=== PATIENT | male | born 1950 | race Caucasian/White ===

== ENCOUNTER 2020-09-06 11:48 | Emergency (ER) | payer OTHER, SELFPAY ==
[2020-09-06 11:53] VITALS: BP 136/71; PULSE 70; RESP 18; TEMP 36.6; O2SAT 97; BMI 30.4
--- NOTE | 2020-09-06 12:31 | ED_ITS ---
HPI - Eye Problem General Chief complaint: Eye Problems Stated complaint: TOXIC GLUE IN EYE AT WORK Time Seen by Provider: 09/06/20 12:26 History of Present Illness HPI Narrative: Patient was at work working with a hose that was spraying paint and glue and got some of the substance on his left eyelid on his face on his chest and some in the left eye, he did wash out the left eye and it feels a little blurry now but he can see normally, the eyes not glued close and there is no significant pain in the eye, there is no significant pain from any of the other injuries Related Data Allergies Allergy/AdvReac Type Severity Reaction Status Date / Time No Known Allergies Allergy Verified 09/06/20 11:51 Review of Systems Review of Systems: Positive for left eye irritation Negatives are no dizziness no weakness no fainting no fainting no headache no vision loss no photophobia no pain in the eye no discharge no browning or rashes Yes all other systems are reviewed and are negative PMFSH Past Medical History Source: nursing notes reviewed Social History Social History Advance Directives: No Advance Directives Information Provided: Yes Physical Exam Vital Signs: Vital Signs: Last Vital Signs Temp 97.8 F 09/06/20 11:53 Pulse 70 09/06/20 11:53 Resp 18 09/06/20 11:53 BP 136/71 09/06/20 11:53 Pulse Ox 97 09/06/20 11:53 Body Mass Index 30.4 General appearance is no distress comfortable The visual acuity is 20/40 bilaterally The left eye a exam is patient holds his eye open it is not glued shut, the upper lid is flipped back there is no foreign body lower lid no conjunctiva foreign body, the eye is stained there is no dye uptake, no foreign body visua lized on the cornea Pupils equal round react light extraocular motions are intact Skin exam , left upper lid had a small tender area of redness on the upper lid medial aspect, skin was intact there are no other browning or rashes on the face Neck is supple No respiratory distress Chest is clear to auscultation bilateral Extremities full range of motion x4 Course Course Course Narrative: On further evaluation patient's main complaint seems to be discomfort on the outer surface of his left upper lid where there was a small red fredi consistent with possibly a minor chemical burn I add 20/40 vision, fluorescein staining did not reveal any corneal abrasion or any sign of any injury, he had no photophobia, he had no tearing or discharge, the eye was irrigated for 20 minutes and pH was normal and patient was discharged to follow-up with eye doctor as needed Diagnosis was small 1st degree burn to the after surface of the upper lid Discharge Plan Discharge Clinical Impression: Chemical exposure of eye Patient Disposition: Home, Self-Care Additional Instructions: There was no sign of any serious injury to the eye itself There was a small burn to the skin of the outer surface of the upper eyelid which should get better on its own Follow with work connection for work related injury on Tuesday if not fully better Return to the ER any time any worse condition or any concerns Interventions: ED Discharge Assessment Last Done: 09/06/20 14:03 Discharge Date/Time: 09/06/20 14:10
[2020-09-06] MEDS: Fluorescein Sodium STRIP 1 STRIP EYE-LEFT (12:36)
[2020-09-06] MEDS: Tetracaine HCl/PF 0.5% Oph Sol 4 ML DROPS 3 DROP EYE-LEFT (12:36)
== END 2020-09-06 14:10 | disposition home or self-care (01) ==
LOC: HO.ED 14:18
PROVIDERS: Emergency Provider Emergency Medicine
DX: T52.8X1A Toxic effect of other organic solvents, accidental (unintentional), initial encounter (principal); T26.02XA Burn of left eyelid and periocular area, initial encounter; Y92.9 Unspecified place or not applicable
CPT/HCPCS: 99283

== ENCOUNTER 2020-12-02 12:39 | Emergency (ER) | payer OTHER, SELFPAY ==
[2020-12-02 14:14] VITALS: BP 179/87; PULSE 67; RESP 18; TEMP 36.5; O2SAT 98; BMI 29.3
[2020-12-02 15:58] VITALS: BP 143/71; PULSE 65; RESP 18; TEMP 37; O2SAT 98
[2020-12-02] MEDS: Fluorescein Sodium STRIP 1 STRIP EYE-LEFT (16:16)
[2020-12-02] MEDS: Tetracaine HCl/PF 0.5% Oph Sol 4 ML DROPS 3 DROP EYE-LEFT (16:16)
--- NOTE | 2020-12-02 18:16 | ED.EYEPROB ---
HPI - Eye Problem General Chief complaint: Eye Problems Stated complaint: eye pain Time Seen by Provider: 12/02/20 15:52 Source: patient Mode of arrival: ambulatory History of Present Illness HPI Narrative: 70-year-old male with a past medical history of asthma, diabetes, HTN, hard of hearing, presenting to the ED complaining of left eye pain, irritation, and blurry/double vision s/p getting [employer] adhesive glue in his eye on Tuesday while at work. Admits to similar symptoms happening in the past. Reports irrigated eye on Tuesday without relief. Reports pain/burning and tearing. Denies visual loss, eye trauma Patient admits to wearing glasses MD chief complaint: eye pain, eye redness and vision change Related Data Previous Rx's Medication Instructions Recorded acetaminophen 500 mg tablet 500 mg PO Q6H PRN #20 tab 12/02/20 (Tylenol Extra Strength) artifi.tears(hypromellose)(PF) 0.3 2 drp OPHTHALMIC-LEFT Q4-6H PRN 12/02/20 % eye drops #10 ml erythromycin 5 mg/gram (0.5 %) eye 1 appl OPHTHALMIC (EYE) Q6H #3.5 g 12/02/20 ointment naproxen 500 mg tablet 500 mg PO BID PRN 10 Days #20 tab 12/02/20 Allergies Allergy/AdvReac Type Severity Reaction Status Date / Time No Known Allergies Allergy Verified 09/06/20 11:51 Review of Systems Review of Systems: Constitutional: No Fever, No Chills, No Fatigue, No Malaise ENT/Mouth: No Ear Pain, No Nasal Congestion, No Sinus Pain, No Hoarseness, No sore throat, No Rhinorrhea, No Swallowing Difficulty Eyes: + Eye Pain, + Swelling, + Redness, No Foreign Body, + Discharge, + Vision Changes Cardiovascular: No Chest Pain, No SOB, No Palpitations Respiratory: No Cough, No Dyspnea Gastrointestinal: No Nausea, No Vomiting, No Abdominal pain Musculoskeletal: No joint pain, No Myalgias, No Joint Swelling Skin: No Skin Lesions, No rash Neuro: No Weakness, No Numbness, No Paresthesias, No Loss of Consciousness, No Headache Yes all other systems are reviewed and are negative [facility] Past Medical History Attestation statement: The following information was validated with the patient. Medical History (Updated 12/02/20 @ 18:17 by NICHOLE Mosher) Asthma Diabetes Hard of hearing Hypertension Social History Social History Advance Directives: No Advance Directives Information Provided: No Physical Exam Vital Signs: Vital Signs: Last Vital Signs Temp 98.6 F 12/02/20 15:58 Pulse 65 12/02/20 15:58 Resp 18 12/02/20 15:58 BP 143/71 H 12/02/20 15:58 Pulse Ox 98 12/02/20 15:58 Body Mass Index 29.3 Const: General: cooperative, healthy appearing and no acute distress Orientation/consciousness: patient oriented x3 Limitations: no limitations HENMT: Head: Yes normal to inspection Ears: hearing grossly normal bilaterally General nose exam: Normal external nose present Face and sinus: Yes normal facial exam Eyes: Other: VA: 20/50 bilaterally without corrective lenses Left eye with some residual glue stuck in lateral eyelashes. Eye fully opens, is not glued shut, EOMs intact without pain. Left eye was fluorescein stained without uptake, no appreciable foreign body. + conjunctival injection and chemosis General: appearance normal, both eyes and all related structures Pupils: Equal, round and reactive pupils present EOM: EOMs intact bilaterally Direct Ophthalmoscopy: normal light reflex Neck: Neck: Yes normal visual inspection, Yes no lymphadenopathy and Yes no meningeal signs Resp: Effort & Inspection: normal respiratory effort and no respiratory distress Cardio: Rate: regular rate Skin: Rashes: no rashes Wounds: no wounds Neuro: General: patient oriented x3 and no meningeal signs Cranial nerves: Yes Equal, round and reactive pupils present Gait exam (Neuro): Normal gait present Extrem: General: Yes normal to inspection Course Course Course Narrative: -initial pH 8.0 in the left eye, 7.0 in the right eye -patient tolerated 1L IVF Sinan lens > pH after irrigation improved to 7.5. Discussed with patient would like to irrigate 1 more L IVF however patient refused, discussed importance however patient continued to refuse as he needs to catch bus back to [place] -spoke to ophthalmology Dr. Agosto, recommended additional irrigation, erythromycin ointment, artificial tears, and ophthalmology follow-up MDM - Eye Problem MDM Narrative Medical decision making narrative: 70-year-old male with a past medical history of asthma, diabetes, HTN, hard of hearing, presenting to the ED complaining of left eye pain, irritation, and blurry/double vision s/p getting [employer] adhesive glue in his eye on Tuesday while at work. On exam VSS, NAD/well-appearing, physical exam as above. No appreciable foreseen uptake, pH 8 in left eye, will irrigate. Concern for chemical exposure/burn vs corneal abrasion/irritation Plan: Fluorescein stain, Sinan lens, ophthalmology consult Medical Records Attestation: I reviewed the patient's medical records. Lab Data Attestation: I reviewed the patient's lab results. Discharge Plan Discharge Clinical Impression: Chemical exposure of eye Patient Disposition: Home, Self-Care Instructions: Eye Wash (Into the eye) Additional Instructions: YOU NEED TO FOLLOW-UP WITH THE PIGMENT PROCESSOR, CALL TO MAKE APPOINTMENT TOMORROW VINNIE ERYTHROMYCIN IS ANTIBIOTIC OINTMENT, APPLY TO YOUR LEFT EYE PRESCRIBED ARTIFICIAL TEARS WILL HELP WITH YOUR DISCOMFORT NAPROXEN AN ANTI-INFLAMMATORY/PAIN MEDICATION, IN ADDITION TAKE TYLENOL IF HER SYMPTOMS PERSIST OR WORSEN, YOUR VISUAL LOSS/WORSENING VISUAL CHANGES PLEASE RETURN TO THE ED Prescriptions: New erythromycin 5 mg/gram (0.5 %) ointment 1 appl ophthalmic (eye) Q6H Qty: 3.5 RF: 0 artifi.tears(hypromellose)(PF) 0.3 % drops 2 drp ophthalmic-Left Q4-6H PRN (Reason: dry eyes) Qty: 10 RF: 0 acetaminophen [Tylenol Extra Strength] 500 mg tablet 500 mg PO Q6H PRN (Reason: pain or fever) Qty: 20 RF: 0 naproxen 500 mg tablet 500 mg PO BID PRN (Reason: pain) 10 Days Qty: 20 RF: 0 Referrals: Vince Mirza [Physician] - 1 day Interventions: ED Discharge Assessment Last Done: 12/02/20 18:34
--- NOTE | 2020-12-02 18:29 | PC.NURSE ---
PT ATATE HE DOSE HAVE GLASSES FOR WHEN HE WATCHES TV AND HE DOES NOT HAVE THEM ON HIM.
== END 2020-12-02 18:38 | disposition home or self-care (01) ==
PROVIDERS: Emergency Provider Emergency Medicine Emergency Medical Services
DX: H57.12 Ocular pain, left eye (principal); Z77.098 Contact with and (suspected) exposure to other hazardous, chiefly nonmedicinal, chemicals; E11.9 Type 2 diabetes mellitus without complications; I10 Essential (primary) hypertension; J45.909 Unspecified asthma, uncomplicated
CPT/HCPCS: 99283; 99284